=== PATIENT | female | born 1955 | race Caucasian/White ===

== ENCOUNTER 2018-06-20 06:50 | Day surgery (SDC) | payer OTHER ==
[2018-06-20] MEDS ORDERED: MEPERIDINE HCL/PF 100 MG/ML AMP ONE (07:39)
[2018-06-20] MEDS ORDERED: SIMETHICONE 40 MG/0.6 ML ML ONE (07:39)
[2018-06-20] MEDS ORDERED: MIDAZOLAM HCL 5 MG/5 ML VIAL ONE (07:40)
[2018-06-20] MEDS ORDERED: fentaNYL CITRATE/PF 100 MCG/2 ML AMP ONE (07:59)
[2018-06-20 10:33] VITALS: BP_SYST 133
== END 2018-06-20 10:15 | disposition home or self-care (01) ==
LOC: SMU 06:50 → SDS 06:50
PROVIDERS: ATTEND Surgery
DX: D13.0 Benign neoplasm of esophagus (principal); K21.0 Gastro-esophageal reflux disease with esophagitis; K44.9 Diaphragmatic hernia without obstruction or gangrene; K29.50 Unspecified chronic gastritis without bleeding; K25.9 Gastric ulcer, unspecified as acute or chronic, without hemorrhage or perforation; G89.29 Other chronic pain; Z98.890 Other specified postprocedural states; Z79.899 Other long term (current) drug therapy
CPT/HCPCS: 43239; 43251; 88305; 88313; J2250; J3010; J2175

== ENCOUNTER 2018-07-26 10:38 | Day surgery (SDC) | payer OTHER ==
[~2018-07-26] VITALS: Ht 162.6 cm; Wt 68.0 kg
[~2018-07-26 10:38] MED LIST: CEFAZOLIN 2 GM IVPB PREMIX 50 ML IV ONE
[2018-07-26] MEDS ORDERED: NS 1000 ML IV.SOLN IV ONE (12:45)
[2018-07-26] MEDS ORDERED: PROPOFOL 200MG/ 20ML VIAL (DIPRIVAN) IV ONE (12:45)
[2018-07-26] MEDS ORDERED: WATER FOR IRRIGATION,STERILE 1,000 ML IRRIG.SOLN IR ONE (12:45)
[2018-07-26] MEDS ORDERED: PHENYLEPHRINE HCL 10 MG/ML VIAL (NEOSYNEPHRINE) IV ONE (12:45)
[2018-07-26] MEDS ORDERED: BUPIVACAINE /PF 0.5% 30 ML VIAL INJ ONE (12:45)
[2018-07-26] MEDS ORDERED: LIDOCAINE 2%, 20 ML MDV INJ ONE (12:45)
[2018-07-26] MEDS ORDERED: ROCURONIUM BROMIDE 10 MG/ML (ZEMURON) IV ONE (12:45)
[2018-07-26] MEDS ORDERED: LR 1,000 ML IV.SOLN IV ONE (12:45)
[2018-07-26] MEDS ORDERED: SEVOFLURANE 15 MIN GAS INH ONE (12:45)
[2018-07-26] MEDS ORDERED: GLYCOPYRROLATE 0.2 MG/ML VIAL IJ ONE (12:45)
[2018-07-26] MEDS ORDERED: ONDANSETRON HCL 4 MG/2 ML VIAL IVP ONE (12:45)
[2018-07-26] MEDS ORDERED: KETOROLAC TROMETHAMINE 30 MG VIAL IVP ONE (12:45)
[2018-07-26] MEDS ORDERED: fentaNYL CITRATE/PF 100 MCG/2 ML AMP IVP ONE (12:45)
[2018-07-26] MEDS ORDERED: MIDAZOLAM HCL 5 MG/5 ML VIAL IVP ONE (12:45)
[2018-07-26] MEDS ORDERED: IOHEXOL 50 ML IV ONE (13:39)
[2018-07-26] MEDS ORDERED: fentaNYL CITRATE/PF 100 MCG/2 ML AMP IVP PRN ×2 (13:45)
[2018-07-26] MEDS ORDERED: KETOROLAC TROMETHAMINE 30 MG VIAL IVP PRN (13:45)
[2018-07-26] MEDS ORDERED: ONDANSETRON HCL 4 MG/2 ML VIAL IVP PRN ×2 (13:45→14:30)
[2018-07-26] MEDS ORDERED: MORPHINE 4 MG/ML INJ. SYRINGE IVP PRN (14:30)
[2018-07-26] MEDS ORDERED: hydrALAZINE HCL 20 MG/ML VIAL IVP ONE (15:00)
[2018-07-26] MEDS ORDERED: hydrALAZINE HCL 20 MG/ML VIAL ONE (15:02)
[2018-07-26] MEDS ORDERED: HYDROcodone/ACETAMIN 5-325 MG TAB (NORCO/ VICODIN) ONE (16:20)
[2018-07-26] MEDS: ACETAMINOPHEN/CODEINE 300 MG-30 MG TABLET PO PRN ×2 (16:22→22:56)
[2018-07-26] MEDS ORDERED: ACETAMINOPHEN/CODEINE 300 MG-30 MG TABLET ONE (16:22)
[2018-07-26] MEDS ORDERED: ONDANSETRON HCL 4 MG/2 ML VIAL ONE (16:34)
[2018-07-26] MEDS ORDERED: HYG25 PO (17:31)
[2018-07-26] MEDS ORDERED: SIMV10TA2 PO (17:31)
[2018-07-26] MEDS ORDERED: RESEYE OP (17:31)
[2018-07-26] MEDS ORDERED: DULO20CA PO (17:31)
[2018-07-26 18:02] VITALS: BP_SYST 108
--- NOTE | 2018-07-26 18:50 | NUR ---
Note Pt arrived on floor via gurney to room 125A at 1800. Pt has 4 lap sites and dressing CDI (steri - strips). IV in left hand intact and patent infusing IVF's well. Pt's daughter and at bedside. No SOB/resp distress or pain/discomfort noted at this time. Pt is nauseated - Zofran IVP and Tylenol with codeine was given to pt before she came to the floor. No needs noted at this time. Call light within reach.
--- NOTE | 2018-07-26 20:00 | NUR ---
INITIAL NOTES: PATIENT IN BED AWAKE ,ORIENTED X3, POST OP VITAL MONITORING IN PROGRESS. HAS TOLERABLE POST OP PAIN.IVF TO LFA INFUSING WELL. SITE CLEAR.SCD BED ALARM ON. FOUR DRESSINGS ON RIGHT/MIDDLE ABDOMEN DRY AND INTACT EXCEPT ONE NEAR NAVEL WITH OLD BLOOD. INCISION SITE WITH STERI STRIPS.BOWEL SOUNDS PRESENT. FEELS MOUTH DRY. FEELS HUNGRY. JELLO GIVEN. NO N/V AFTER.INSTRUCTED ON USE OF CALL LIGHT,BED ALARM .BED IN LOW POSITION FOR SAFETY.WILL MONITOR CLOSELY.
[2018-07-26 21:00] VITALS: BP_SYST 126
--- NOTE | 2018-07-26 22:15 | NUR ---
ASSISTED TO BATHROOM TO VOID. DENIES DIZZINESS. TOLERATED WELL. ASKED FOR JELLO, GIVEN AND TAKEN WELL. ICE CHIPS AND WATER TOLERATED.
--- NOTE | 2018-07-26 22:55 | NUR ---
PAIN: COMPLAIN OF POST OP PAIN. TYLENOL #3 GIVEN ORDERED. NO N/V. CALL LIGHT WITHIN REACH.
[2018-07-26 23:31] VITALS: BP_SYST 117
--- NOTE | 2018-07-27 00:30 | NUR ---
RESTING QUIETELY WITH EYES CLOSE. BREATHING PATTERN REGULAR.
--- NOTE | 2018-07-27 01:30 | NUR ---
VOID: ASSISTED TO BATHROOM TO VOID. WALKING SLOWLY TO BED.
--- NOTE | 2018-07-27 02:30 | NUR ---
ROUNDS: RESTING QUITELY WITH EYES CLOSE. BREATHING REGULARLY.
--- NOTE | 2018-07-27 04:30 | NUR ---
ROUNDS: NO DISTRESS. RESTING WITH EYES CLOSE.EASILY AWAKEN.
--- NOTE | 2018-07-27 06:30 | NUR ---
CLOSING: PATIENT RESTING WITH EYES CLOSE. BREATHING PATTERN SYMETRICAL. NO ACUTE DISTRESS WHOLE SHIFT. PAIN FAIRLY CONTROLLED BY TYLENOL#3PO. VOIDS IN THE BATHROOM WITH ASSIST. DRESSING DRY AND INTACT. ALL NEEDS WERE ATTENDED. SAFETY MEASURES OBSERVED. WILL ENDORSE CARE TO AM RN FOR FURTHER CARE.
--- NOTE | 2018-07-27 07:30 | NUR ---
INITIAL NOTE RECEIVED PT IN BED, NO S/S OF DISTRESS OR SOB NOTED, PT HAS NO C/O PAIN AT THIS TIME, PT IN STABLE CONDITION, PT AAOX4, VERBAL. IV CATHETER PATENT, NO SIGNS OF INFECTION OR INFILTRATION NOTED, SALINE LOCK. PT HAS 4 ABD INCISIONS WITH DRESSING CLEAN AND DRY X3, ONE HAS OLD BLOOD ON IT. EDUCATED PT ON USE OF INCENTIVE SPIROMETER, PT TO USE 10 TIMES AN HOUR WHILE AWAKE, PT VERBALIZED UNDERSTANDING, PT AT 500ML. EDUCATED PT TO AMBULATE WITH ASSIST. PT HAS BILATERAL SCD'S IN PLACE. Addendum: 07/27/18 at 0957 by Natalie Aguillon RN BED AT LOWEST POSITION, CALL LIGHT WITHIN REACH, WILL CONTINUE TO MONITOR PT FOR ANY CHANGES, FALL AND SAFETY PRECAUTIONS IN PLACE.
[2018-07-27 08:30] VITALS: BP_SYST 115
--- NOTE | 2018-07-27 09:24 | NUR ---
Nutrition Update Isidoro Scale 18 noted. Pt admitted for calculus of bile duct without cholangitis or cholecystitis. Diet: clear liquid BMI: 25.7 kg/m2 RD to follow per nutrition care standards.
--- NOTE | 2018-07-27 10:46 | NUR ---
CALL DR MARISA ALEJANDRO, AWAITING CALL BACK, TO NOTIFY HIM THAT PT IS HAVING PAIN ON RIGHT UPPER CHEST/STERNAL SITE ESPECIALLY WHEN SHE BREATHS IN. SPOKE WITH DR CUNNINGHAM AND HE CONSULTED Louis TORIBIO Addendum: 07/27/18 at 1049 by Natalie Aguillon RN VSS, OXYGEN 98% ROOM AIR, PULSE 85, BLOOD PRESSURE 112/62, 98.6, 19.
--- NOTE | 2018-07-27 10:51 | NUR ---
CONSULTATION PAGED REASON FOR CONSULTATION:CHEST PAIN WAS CONSULT CALLED?Y PERSON WHO WAS NOTIFIED:DANIELLE CONSULTING PHYSICIAN:ZEN LO FILLER [employer] SPECIALTY:[employer] PHONE NUMBER:[phone] REQUESTING PHYSICIAN:DARREN CUNNINGHAM
--- NOTE | 2018-07-27 10:55 | NUR ---
ROUNDS PT IN BED, NO S/S OF DISTRESS OR SOB NOTED, PT HAS NO C/O PAIN AT THIS TIME, PT IN STABLE CONDITION, PT TALKING ON THE PHONE, WILL CONTINUE TO MONITOR PT FOR ANY CHANGES.
[2018-07-27] MEDS: ACETAMINOPHEN/CODEINE 300 MG-30 MG TABLET PO PRN (11:08)
--- NOTE | 2018-07-27 12:05 | NUR ---
ROUNDS PT IN BED, NO S/S OF DISTRESS OR SOB NOTED, PT HAS NO C/O PAIN AT THIS TIME, PT IN STABLE CONDITION, PT WATCHING TV, WILL CONTINUE TO MONITOR PT FOR ANY CHANGES.
[2018-07-27 12:25] VITALS: BP_SYST 128
--- NOTE | 2018-07-27 12:30 | NUR ---
BATHROOM PT AMBULATED TO THE RESTROOM AND AROUND THE NURSES STATION, PT TOLERATED, NURSE AT HER SIDE FOR SAFETY.
--- NOTE | 2018-07-27 14:26 | NUR ---
ROUNDS PT IN BED, NO S/S OF DISTRESS OR SOB NOTED, PT HAS NO C/O PAIN AT THIS TIME, PT IN STABLE CONDITION, PT ON HER PHONE, WILL CONTINUE TO MONITOR PT FOR ANY CHANGES.
--- NOTE | 2018-07-27 15:27 | NUR ---
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 Addendum: 07/27/18 at 1608 by Natalie Aguillon RN DR CUNNINGHAM CALLED BACK AND STATED THAT PT CAN LEAVE AMA IF SHE DOES NOT WANT TO STAY DUE TO THE PAIN SHE WAS HAVING IN HER UPPER RIGHT CHEST.
[2018-07-27 15:34] VITALS: BP_SYST 118
[2018-07-27 16:19] VITALS: BP_SYST 120
--- NOTE | 2018-07-27 16:27 | NUR ---
AMA: Patient does not wish to proceed with medical care recommended by Dr Fernandez. Patient given information related to possible complications, up to and including , which could occur as a result of leaving hospital at this time. Patient verbalizes understanding of risks involved leaving against medical advice. Patient has signed AMA form. Daughter is picking up patient and made aware too. IV catheter removed, no active bleeding noted, dressing in place.
== END 2018-07-27 16:27 | disposition left against medical advice (07) ==
LOC: SDS 10:38 → SMU 18:00 → SDS 07-27 16:27
PROVIDERS: ATTEND Surgery
DX: K80.10 Calculus of gallbladder with chronic cholecystitis without obstruction (principal); Z98.890 Other specified postprocedural states; I10 Essential (primary) hypertension; E78.5 Hyperlipidemia, unspecified
CPT/HCPCS: 47563; 74018; 74300; 88304; C1727; J0360; J0690; J1885; J2001; J2250; J2370; J2405; J2704; J3010; J3490 ×2; J7030; J7120; Q9967

== ENCOUNTER 2018-09-05 10:44 | Emergency (ER) | payer OTHER ==
[~2018-09-05] VITALS: Ht 165.1 cm; Wt 63.5 kg
[2018-09-05 10:44] VITALS: BP_SYST 154
[~2018-09-05 10:44] MED LIST changes: -CEFAZOLIN 2 GM IVPB PREMIX 50 ML IV ONE; +HYG25 PO; +RESEYE OP; +SIMV10TA2 PO
[2018-09-05 11:33] LABS: BASOPHILS # (AUTO) 0.1 K/uL (0.0-0.2); BASOPHILS % (AUTO) 0.9 % (0.0-2.0); EOSINOPHILS # (AUTO) 0.3 K/uL (0.0-0.4); EOSINOPHILS % (AUTO) 4.6 % (0.0-4.0); HEMATOCRIT 37.9 % (36-48); HEMOGLOBIN 12.6 g/dL (12.0-16.0); LYMPHOCYTES # (AUTO) 1.6 K/uL (1.0-5.5); LYMPHOCYTES % (AUTO) 24.3 % (20.5-51.5); MEAN CORPUSCULAR HEMOGLOBIN 26 pg (27-31); MEAN CORPUSCULAR HGB CONC 33 % (32-36); MEAN CORPUSCULAR VOLUME 79 fL (79.0-98.0); MONOCYTES # (AUTO) 0.4 K/uL (0.0-1.0); MONOCYTES % (AUTO) 6.6 % (1.7-9.3); NEUTROPHILS # (AUTO) 4.2 K/uL (1.8-7.7); NEUTROPHILS % (AUTO) 63.6 % (40.0-70.0); PLATELET COUNT (AUTO) 252 K/uL (130-430); RED CELL DISTRIBUTION WIDTH 14.9 % (9.0-15.0); WHITE BLOOD COUNT (AUTO) 6.5 K/uL (4.8-10.8)
[2018-09-05 11:38] LABS: CALCIUM 9.4 mg/dL (8.4-11.0); CREATININE 0.58 mg/dL (0.55-1.30); POTASSIUM 3.5 mmol/L (3.5-5.1)
[2018-09-05 11:42] LABS: TOTAL BILIRUBIN 0.5 mg/dL (0.0-1.0)
[2018-09-05] MEDS ORDERED: KETOROLAC TROMETHAMINE 15 MG VIAL IVP ONE (12:00)
[2018-09-05 12:55] VITALS: BP_SYST 146
== END 2018-09-05 12:55 | disposition home or self-care (01) ==
LOC: SED 10:44
DX: R10.11 Right upper quadrant pain (principal); E78.00 Pure hypercholesterolemia, unspecified; I10 Essential (primary) hypertension; Z90.49 Acquired absence of other specified parts of digestive tract; Z90.89 Acquired absence of other organs; Z79.899 Other long term (current) drug therapy
CPT/HCPCS: 36415; 74176; 80053; 83690; 85025; 96374; 99284; J1885

== ENCOUNTER 2019-06-05 07:10 | Day surgery (SDC) | payer OTHER ==
[~2019-06-05] VITALS: Ht 162.6 cm; Wt 68.0 kg
[2019-06-05] MEDS ORDERED: SIMETHICONE 40 MG/0.6 ML ML ONE (07:42)
[2019-06-05] MEDS ORDERED: fentaNYL CITRATE/PF 100 MCG/2 ML AMP ONE (07:42)
[2019-06-05] MEDS ORDERED: MIDAZOLAM HCL 5 MG/5 ML VIAL ONE (07:44)
[2019-06-05] MEDS: MIDAZOLAM HCL 5 MG/5 ML VIAL ONE ×2 (08:39→08:41)
[2019-06-05 09:59] VITALS: BP_SYST 149
== END 2019-06-06 09:59 | disposition home or self-care (01) ==
LOC: SDS 07:10 → SMU 07:10 → SDS 06-06 09:59 → SMU 06-19 07:57
PROVIDERS: ATTEND Surgery
DX: R10.10 Upper abdominal pain, unspecified (principal); K29.50 Unspecified chronic gastritis without bleeding; K21.9 Gastro-esophageal reflux disease without esophagitis; K44.9 Diaphragmatic hernia without obstruction or gangrene
CPT/HCPCS: 43239; 88305; 88312; 88313; J2250; J3010